=== PATIENT | female | born 1990 | race Hispanic/Latino ===

== ENCOUNTER 2019-09-18 02:46 | Emergency (ER) | payer SELFPAY ==
[2019-09-18 03:34] LABS: APPEARANCE,URINE Clear (CLEAR); BILIRUBIN,URINE Negative (NEGATIVE); COLOR,URINE Yellow (YELLOW); GLUCOSE, URINE (UA) Negative (NEGATIVE); KETONES,URINE 15 mg/dL (NEGATIVE); LEUKOCYTE ESTERASE ,URINE Small (NEGATIVE); NITRATE,URINE Negative (NEGATIVE); OCCULT BLOOD,URINE Large (NEGATIVE); PROTEIN,URINE Negative (NEGATIVE); UROBILINOGEN,URINE 0.2 mg/dL (0.2-1.0)
[2019-09-18 03:42] LABS: AMPHET/METH SCREEN,URINE NEGATIVE (NEGATIVE); BARBITURATE SCREEN, URINE NEGATIVE (NEGATIVE); BENZODIAZEPINES SCREEN,URINE NEGATIVE (NEGATIVE); CANNABINOID SCREEN,URINE NEGATIVE (NEGATIVE); COCAINE SCREEN,URINE NEGATIVE (NEGATIVE); OPIATE SCREEN,URINE NEGATIVE (NEGATIVE); PHENCYCLIDINE SCREEN,URINE NEGATIVE (NEGATIVE)
[2019-09-18 03:48] LABS: BACTERIA,URINE None Seen /HPF (None Seen); WBC,URINE None Seen /HPF (0-1)
[2019-09-18 03:49] LABS: HCG,QUAL RESULT NEGATIVE (NEGATIVE)
[2019-09-18 04:06] LABS: BASOPHILS % (AUTO) 0.4 % (0.0-5.0); EOSINOPHILS % (AUTO) 1.5 % (0.0-8.0); HEMATOCRIT 37.1 % (36-48); LYMPHOCYTES % (AUTO) 21.7 % (21.0-51.0); MEAN CORPUSCULAR HEMOGLOBIN 27.6 pg (27.0-33.0); MEAN CORPUSCULAR HGB CONC 33.7 g/dL (32.0-36.0); MEAN CORPUSCULAR VOLUME 81.9 fL (79-99); MONOCYTES % (AUTO) 5.5 % (3.0-13.0); NEUTROPHILS % (AUTO) 70.7 % (40.0-77.0); PLATELET COUNT (AUTO) 305 K/uL (130-400); RED BLOOD CELL COUNT(AUTO) 4.53 MIL/uL (4.00-5.50); RED CELL DISTRIBUTION WIDTH 13.4 % (11.0-15.5); WHITE BLOOD COUNT (AUTO) 8.1 K/uL (4.8-10.8)
[2019-09-18 04:15] LABS: CREATININE 0.7 mg/dL (0.5-1.5); POTASSIUM 3.1 mmol/L (3.5-5.1)
[2019-09-18 04:20] LABS: ALBUMIN 3.5 g/dL (3.5-5.0); BILIRUBIN,TOTAL 0.3 mg/dL (0.2-1.0); TOTAL PROTEIN, SERUM 7.7 g/dL (6.0-8.3)
[2019-09-18] MEDS ORDERED: POTASSIUM BICARB/CIT AC 25 MEQ TABLET.EFF ONE (04:38)
== END 2019-09-18 05:10 | disposition home or self-care (01) ==
LOC: EDH 02:46
DX: R07.89 Other chest pain (principal); R10.13 Epigastric pain; F41.9 Anxiety disorder, unspecified; R00.2 Palpitations; E87.6 Hypokalemia
CPT/HCPCS: 36415; 71045; 76705; 80053; 80305; 81001; 81025; 82550; 83690; 84484; 85025; 93005

== ENCOUNTER 2021-07-03 17:46 | Emergency (ER) | payer MEDICAID ==
[~2021-07-03] VITALS: Ht 157.5 cm; Wt 113.4 kg
[2021-07-03] MEDS ORDERED: ACETAMINOPHEN 325 MG TAB PO ONE (18:00)
[2021-07-03] MEDS ORDERED: CLIN-141 PO (18:07)
[2021-07-03 18:28] VITALS: BP 128/72
== END 2021-07-03 18:20 | disposition home or self-care (01) ==
LOC: EDH 17:46
DX: K05.6 Periodontal disease, unspecified (principal)
CPT/HCPCS: 99281; 99282

== ENCOUNTER 2021-12-30 18:15 | Emergency (ER) | payer MEDICAID ==
[~2021-12-30] VITALS: Ht 157.5 cm; Wt 107.0 kg
[~2021-12-30 18:15] MED LIST: CLIN-141 PO
[2021-12-30 19:08] LABS: APPEARANCE,URINE Clear (CLEAR); BILIRUBIN,URINE Negative (NEGATIVE); COLOR,URINE Yellow (YELLOW); GLUCOSE, URINE (UA) Negative (NEGATIVE); KETONES,URINE Trace mg/dL (NEGATIVE); LEUKOCYTE ESTERASE ,URINE Small (NEGATIVE); NITRATE,URINE Negative (NEGATIVE); OCCULT BLOOD,URINE Negative (NEGATIVE); PH,URINE 6.5 (5.0-8.0); PROTEIN,URINE Negative (NEGATIVE); UROBILINOGEN,URINE 0.2 mg/dL (0.2-1.0)
[2021-12-30 19:12] LABS: HCG,QUAL RESULT NEGATIVE (NEGATIVE)
[2021-12-30 19:14] LABS: BACTERIA,URINE Few /HPF (None Seen); RBC,URINE 0-1 /HPF (0-1); SQUAMOUS EPITHELIAL CELL,UR Few /HPF (0-2); WBC,URINE 0-1 /HPF (0-1)
[2021-12-30 19:26] VITALS: BP 117/63
[2021-12-30 19:30] LABS: BASOPHILS % (AUTO) 0.5 % (0.0-5.0); EOSINOPHILS % (AUTO) 1.2 % (0.0-8.0); HEMATOCRIT 36.3 % (36-48); LYMPHOCYTES % (AUTO) 28.1 % (21.0-51.0); MEAN CORPUSCULAR HEMOGLOBIN 25.6 pg (27.0-33.0); MONOCYTES % (AUTO) 5.5 % (3.0-13.0); NEUTROPHILS % (AUTO) 64.5 % (40.0-77.0); PLATELET COUNT (AUTO) 315 K/uL (130-400); RED BLOOD CELL COUNT(AUTO) 4.54 MIL/uL (4.00-5.50); RED CELL DISTRIBUTION WIDTH 14.1 % (11.0-15.5); WHITE BLOOD COUNT (AUTO) 8.9 K/uL (4.8-10.8)
[2021-12-30 19:33] LABS: AMPHET/METH SCREEN,URINE NEGATIVE (NEGATIVE); BARBITURATE SCREEN, URINE NEGATIVE (NEGATIVE); BENZODIAZEPINES SCREEN,URINE NEGATIVE (NEGATIVE); CANNABINOID SCREEN,URINE NEGATIVE (NEGATIVE); COCAINE SCREEN,URINE NEGATIVE (NEGATIVE); OPIATE SCREEN,URINE NEGATIVE (NEGATIVE); PHENCYCLIDINE SCREEN,URINE NEGATIVE (NEGATIVE)
[2021-12-30 19:35] LABS: CREATININE 0.7 mg/dL (0.5-1.5); POTASSIUM 3.9 mmol/L (3.5-5.1)
[2021-12-30 19:39] LABS: ALBUMIN 3.4 g/dL (3.5-5.0); BILIRUBIN,TOTAL 0.3 mg/dL (0.2-1.0); TOTAL PROTEIN, SERUM 7.5 g/dL (6.0-8.3)
[2021-12-30] MEDS ORDERED: FLUT1DIS IH (19:46)
[2021-12-30] MEDS ORDERED: ALBU8.5H8 IH (19:46)
== END 2021-12-30 19:59 | disposition home or self-care (01) ==
LOC: EDH 18:15
DX: R06.00 Dyspnea, unspecified (principal); R07.89 Other chest pain; E66.9 Obesity, unspecified; Z68.41 Body mass index [BMI] 40.0-44.9, adult; Z79.899 Other long term (current) drug therapy; Z98.890 Other specified postprocedural states
CPT/HCPCS: 36415; 71045; 80053; 80305; 81001; 81025; 82550; 84484; 85025

== ENCOUNTER 2023-03-18 06:46 | Emergency (ER) | payer MEDICAID, OTHER ==
[~2023-03-18] VITALS: Ht 157.5 cm; Wt 111.6 kg
[~2023-03-18 06:46] MED LIST changes: +ALBU8.5H8 IH; +FLUT1DIS IH
[2023-03-18 07:55] LABS: BASOPHILS # (AUTO) 0.04 K/uL (0.00-0.20); BASOPHILS % (AUTO) 0.6 % (0.0-5.0); EOSINOPHILS # (AUTO) 0.09 K/uL (0.00-0.70); EOSINOPHILS % (AUTO) 1.4 % (0.0-8.0); HEMATOCRIT 32.5 % (36-48); IMMATURE GRANULOCYTE ABSOLUTE 0.02 K/uL (0-1); LYMPHOCYTES # (AUTO) 2.2 K/uL (1.0-4.8); LYMPHOCYTES % (AUTO) 35.1 % (21.0-51.0); MEAN CORPUSCULAR HEMOGLOBIN 23.5 pg (27.0-33.0); MEAN CORPUSCULAR HGB CONC 31.7 g/dL (32.0-36.0); MEAN CORPUSCULAR VOLUME 74.2 fL (79-99); MONOCYTES # (AUTO) 0.5 K/uL (0.1-1.0); MONOCYTES % (AUTO) 8.1 % (3.0-13.0); NEUTROPHILS # (AUTO) 3.4 K/uL (1.8-7.7); NEUTROPHILS % (AUTO) 54.5 % (40.0-77.0); PLATELET COUNT (AUTO) 313 K/uL (130-400); RED BLOOD CELL COUNT(AUTO) 4.38 MIL/uL (4.00-5.50); WHITE BLOOD COUNT (AUTO) 6.3 K/uL (4.8-10.8)
[2023-03-18 07:58] LABS: APPEARANCE,URINE CLEAR (CLEAR); BILIRUBIN,URINE NEGATIVE (NEGATIVE); COLOR,URINE LIGHT-YELLOW (YELLOW); GLUCOSE, URINE (UA) NEGATIVE (NEGATIVE); KETONES,URINE NEGATIVE (NEGATIVE); LEUKOCYTE ESTERASE ,URINE 250 Leu/uL (NEGATIVE); NITRATE,URINE NEGATIVE (NEGATIVE); OCCULT BLOOD,URINE NEGATIVE (NEGATIVE); PROTEIN,URINE NEGATIVE (NEGATIVE); UROBILINOGEN,URINE 0.2 mg/dL (0.2-1.0)
[2023-03-18 08:06] LABS: CREATININE 0.7 mg/dL (0.5-1.5); POTASSIUM 4.1 mmol/L (3.5-5.1)
[2023-03-18 08:10] LABS: ADD UA MICROSCOPIC YES; ALBUMIN 3.1 g/dL (3.5-5.0); BILIRUBIN,TOTAL 0.3 mg/dL (0.2-1.0); TOTAL PROTEIN, SERUM 7.1 g/dL (6.0-8.3)
[2023-03-18 08:12] LABS: BACTERIA,URINE RARE /HPF (None Seen); MUCUS,URINE RARE LPF (None Seen); RBC,URINE 0-1 /HPF (0-1); SQUAMOUS EPITHELIAL CELL,UR RARE /HPF (0-2); WBC,URINE 0-1 /HPF (0-1)
[2023-03-18] MEDS ORDERED: SULF1TAB42 PO (08:20)
[2023-03-18] MEDS ORDERED: PHEN-847 PO (08:20)
[2023-03-18 09:55] VITALS: BP 124/70; PULSE 83; RESP 18; O2SAT 99
== END 2023-03-18 10:14 | disposition home or self-care (01) ==
LOC: EDH 06:46
DX: N30.00 Acute cystitis without hematuria (principal); R10.2 Pelvic and perineal pain; Z79.899 Other long term (current) drug therapy; Z98.890 Other specified postprocedural states
CPT/HCPCS: 36415; 80053; 81001; 84703; 85025; 87088

== ENCOUNTER 2023-09-13 22:31 | Emergency (ER) | payer OTHER ==
[~2023-09-13] VITALS: Ht 157.5 cm; Wt 104.8 kg
[~2023-09-13 22:31] MED LIST changes: +PHEN-847 PO; +SULF1TAB42 PO
[2023-09-13 23:06] LABS: SARS-CoV-2, RNA, NAAT NEGATIVE SARS CoV-2 (NEGATIVE)
[2023-09-13 23:09] LABS: RAPID GROUP A STREP negative (NEGATIVE)
[2023-09-13 23:12] LABS: INFLUENZA TYPE A Negative For Type A (NEGATIVE); INFLUENZA TYPE B Negative For Type B (NEGATIVE)
[2023-09-13 23:26] LABS: APPEARANCE,URINE CLEAR (CLEAR); BILIRUBIN,URINE NEGATIVE (NEGATIVE); COLOR,URINE LIGHT-YELLOW (YELLOW); GLUCOSE, URINE (UA) NEGATIVE (NEGATIVE); KETONES,URINE 5 mg/dL (NEGATIVE); LEUKOCYTE ESTERASE ,URINE 75 Leu/uL (NEGATIVE); NITRATE,URINE NEGATIVE (NEGATIVE); PH,URINE 5.5 (5.0-8.0); PROTEIN,URINE NEGATIVE (NEGATIVE); UROBILINOGEN,URINE 0.2 mg/dL (0.2-1.0)
[2023-09-13 23:30] LABS: ADD UA MICROSCOPIC YES
[2023-09-13] MEDS ORDERED: IBUPROFEN 600 MG TABLET PO ONE (23:30)
[2023-09-13 23:39] LABS: MUCUS,URINE RARE LPF (None Seen); RBC,URINE 0-1 /HPF (0-1); SQUAMOUS EPITHELIAL CELL,UR MOD /HPF (0-2)
[2023-09-13] MEDS ORDERED: SULF1TAB42 PO (23:55)
[2023-09-14 00:20] VITALS: BP 118/74; PULSE 76; RESP 16; O2SAT 99
== END 2023-09-14 00:23 | disposition home or self-care (01) ==
LOC: EDH 22:31
DX: N39.0 Urinary tract infection, site not specified (principal); R59.0 Localized enlarged lymph nodes; Z20.822 Contact with and (suspected) exposure to COVID-19; Z79.899 Other long term (current) drug therapy; Z98.890 Other specified postprocedural states
CPT/HCPCS: 81001; 81025; 87088; 87635; 87804; 87880

== ENCOUNTER 2024-04-17 19:22 | Emergency (ER) | payer SELFPAY ==
[~2024-04-17] VITALS: Ht 157.5 cm; Wt 107.5 kg
[2024-04-17 19:57] LABS: APPEARANCE,URINE CLEAR (CLEAR); BILIRUBIN,URINE NEGATIVE (NEGATIVE); COLOR,URINE COLORLESS (YELLOW); GLUCOSE, URINE (UA) NEGATIVE (NEGATIVE); KETONES,URINE NEGATIVE (NEGATIVE); LEUKOCYTE ESTERASE ,URINE 75 Leu/uL (NEGATIVE); NITRATE,URINE NEGATIVE (NEGATIVE); OCCULT BLOOD,URINE NEGATIVE (NEGATIVE); PROTEIN,URINE NEGATIVE (NEGATIVE); UROBILINOGEN,URINE 0.2 mg/dL (0.2-1.0)
[2024-04-17 20:00] LABS: ADD UA MICROSCOPIC YES
[2024-04-17 20:03] LABS: MUCUS,URINE RARE LPF (None Seen); RBC,URINE 0-1 /HPF (0-1); SQUAMOUS EPITHELIAL CELL,UR RARE /HPF (0-2)
[2024-04-17 20:04] LABS: RAPID GROUP A STREP negative (NEGATIVE)
[2024-04-17 20:11] LABS: SARS-CoV-2, RNA, NAAT NEGATIVE SARS CoV-2 (NEGATIVE)
[2024-04-17 20:14] LABS: INFLUENZA TYPE A Negative For Type A (NEGATIVE); INFLUENZA TYPE B Negative For Type B (NEGATIVE)
[2024-04-17 20:14] LABS: BASOPHILS # (AUTO) 0.04 K/uL (0.00-0.20); BASOPHILS % (AUTO) 0.5 % (0.0-5.0); EOSINOPHILS # (AUTO) 0.07 K/uL (0.00-0.70); EOSINOPHILS % (AUTO) 0.9 % (0.0-8.0); HEMATOCRIT 30.2 % (36-48); IMMATURE GRANULOCYTE ABSOLUTE 0.02 K/uL (0-1); LYMPHOCYTES # (AUTO) 2.2 K/uL (1.0-4.8); LYMPHOCYTES % (AUTO) 28.7 % (21.0-51.0); MEAN CORPUSCULAR HEMOGLOBIN 20.5 pg (27.0-33.0); MEAN CORPUSCULAR HGB CONC 29.8 g/dL (32.0-36.0); MEAN CORPUSCULAR VOLUME 68.8 fL (79-99); MONOCYTES # (AUTO) 0.5 K/uL (0.1-1.0); MONOCYTES % (AUTO) 6.2 % (3.0-13.0); NEUTROPHILS # (AUTO) 4.9 K/uL (1.8-7.7); NEUTROPHILS % (AUTO) 63.4 % (40.0-77.0); PLATELET COUNT (AUTO) 399 K/uL (130-400); RED BLOOD CELL COUNT(AUTO) 4.39 MIL/uL (4.00-5.50); RED CELL DISTRIBUTION WIDTH 17.2 % (11.0-15.5); WHITE BLOOD COUNT (AUTO) 7.8 K/uL (4.8-10.8)
[2024-04-17 20:27] LABS: CREATININE 0.8 mg/dL (0.5-1.0); POTASSIUM 3.4 mmol/L (3.5-5.1)
[2024-04-17 20:31] LABS: ALBUMIN 3.3 g/dL (3.5-5.0); BILIRUBIN,DIRECT 0.1 mg/dL (0.0-0.3); BILIRUBIN,TOTAL 0.2 mg/dL (0.2-1.0); TOTAL PROTEIN, SERUM 7.6 g/dL (6.0-8.3)
[2024-04-17 20:50] VITALS: BP 131/80; PULSE 98; RESP 16; TEMP 98; O2SAT 100
[2024-04-17] MEDS: LIDOCAINE HCL 2% VISCOUS 15 ML UDCUP PO ONE (20:53)
[2024-04-17] MEDS: MAG/ALUM/SIMETH 30 ML UDCUP PO ONE (20:53)
[2024-04-17] MEDS ORDERED: PANT40TA55 PO (21:19)
[2024-04-17] MEDS ORDERED: CEPH500B PO (21:19)
[2024-04-17] MEDS ORDERED: FLUT16H NASAL (21:19)
== END 2024-04-17 21:28 | disposition home or self-care (01) ==
LOC: EDH 19:22
DX: J32.9 Chronic sinusitis, unspecified (principal); N39.0 Urinary tract infection, site not specified; K21.9 Gastro-esophageal reflux disease without esophagitis; Z20.822 Contact with and (suspected) exposure to COVID-19; Z79.899 Other long term (current) drug therapy; Z98.890 Other specified postprocedural states
CPT/HCPCS: 36415; 80048; 80076; 81001; 81025; 84484; 85025; 87086; 87635; 87804; 87880; 93005

== ENCOUNTER 2025-04-02 09:28 | Emergency (ER) | payer SELFPAY ==
[~2025-04-02] VITALS: Ht 157.5 cm; Wt 111.1 kg
[~2025-04-02 09:28] MED LIST changes: +CEPH500B PO; +CEPH500T PO; +FLUT16H NASAL; +PANT40TA55 PO
[2025-04-02 09:31] VITALS: TEMP 97.8
[2025-04-02 10:46] LABS: IMMATURE GRANULOCYTE ABSOLUTE 0.01 K/uL (0-1); NUCLEATED RED BLOOD CELLS 0.0 % (0.0-0.19); PLATELET COUNT (AUTO) 424 K/uL (130-400); RED BLOOD CELL COUNT(AUTO) 4.41 MIL/uL (4.00-5.50); RED CELL DISTRIBUTION WIDTH 19.1 % (11.0-15.5); WHITE BLOOD COUNT (AUTO) 6.8 K/uL (4.8-10.8)
[2025-04-02 10:55] LABS: CREATININE 0.6 mg/dL (0.5-1.0); GLOMERULAR FILTR. RATE CALC 120.0 mL/min (>90); GLUCOSE,RANDOM 111.0 mg/dL (70-105); SODIUM SERUM 137.0 mmol/L (136-145); UREA NITROGEN, BLOOD 18.0 mg/dL (7-18)
[2025-04-02 10:58] LABS: APPEARANCE,URINE TURBID (CLEAR); GLUCOSE, URINE (UA) NEGATIVE (NEGATIVE); LEUKOCYTE ESTERASE ,URINE 75 Leu/uL (NEGATIVE); NITRATE,URINE NEGATIVE (NEGATIVE); OCCULT BLOOD,URINE LARGE (NEGATIVE)
[2025-04-02 10:59] LABS: ADD UA MICROSCOPIC YES
[2025-04-02 11:16] LABS: HCG,QUALITATIVE URINE NEGATIVE (NEGATIVE)
[2025-04-02] MEDS: 0.9%NACL 1000ML 1,000 ML IV ONE (11:17)
[2025-04-02] MEDS: PROCHLORPERAZINE 10MG/2ML INJ IV ONE (11:17)
--- NOTE | 2025-04-02 11:18 | ERN ---
General Chief Complaint: Headache Stated Complaint: HEADACHE Time Seen by MD: 09:33 Source: patient History of Present Illness Initial Comments Patient is a 34-year-old female coming in complaining of a headache. Per patient she has been having this headache for a couple of days. No fever no chills. Along with this patient has been having left jaw swelling. Allergies: Coded Allergies: No Known Allergies (Verified Allergy, 07/24/13) Home Meds Active Scripts Cephalexin (Cephalexin) 500 Mg Tablet, 500 MG PO BID for 7 Days, #14 TAB Prov:KALLI SAVAGE 10/08/24 Pantoprazole Sodium (Protonix) 40 Mg Ectab, 40 MG PO DAILY for 30 Days, #30 TAB.EC Prov:LEON WOODRUFF MD 04/17/24 Fluticasone Propionate (Flonase Nasal [place]) 50 Mcg/Actuation [place], 50 MCG NASAL BID for 7 Days, #60 SPRAY Prov:LEON WOODRUFF MD 04/17/24 Cephalexin Monohydrate (Keflex) 500 Mg Cap, 500 MG PO TID for 7 Days, #21 CAP Prov:LEON WOODRUFF MD 04/17/24 Sulfamethoxazole/Trimethoprim (Bactrim Ds Tablet) 800 Mg-160 Mg Tablet, 1 TAB PO BID for 7 Days, #14 TAB 0 Refills Prov:RAJAN HOLBROOK 09/13/23 Phenazopyridine HCl (Pyridium) 200 Mg Tab, 200 MG PO TIDPC for pain, #9 TAB TAKE WITH FOOD TO PREVENT STOMACH UPSET. Prov:JEFF LARSON MD 03/18/23 Sulfamethoxazole/Trimethoprim (Bactrim Ds Tablet) 1 Each Tablet, 1 TAB PO BID, #10 TAB Prov:JEFF LARSON MD 03/18/23 Fluticasone/Salmeterol (Advair 100-50 Diskus) 1 Each Blst.w.dev, 1 EACH IH BID, #1 DISK Prov:ROYAL KOWALSKI 12/30/21 Albuterol Sulfate (Proair Hfa) 8.5 Gm Hfa.aer.ad, 2 PUFF IH QIDP, #1 INHALER Prov:ROYAL KOWALSKI 12/30/21 Clindamycin HCl (Clindamycin HCl) 300 Mg Capsule, 300 MG PO QID, #30 CAP Prov:LEON WOODRUFF MD 07/03/21 Past Medical History Past Medical History: Anemia Past Surgical History: None Surgical History Other: D&C Family History Family History: Negative Social History Social History: Negative Female( History) LMP: Apr 02, 2025 : 4 Para: 3 Aborts: 1 ROS Dictation CONSTITUTIONAL: No chills, no fever, no weakness, no diaphoresis, no malaise. HEAD/FACE: No signs of trauma. EENT: No eye pain, no blurred vision, no tearing, no double vision, no ear pain, no ear discharge, no nose pain, no nasal congestion, no throat pain, no throat swelling, no mouth pain. RESPIRATORY: No cough, no orthopnea, no SOB, no stridor, no wheezing. CARDIOVASCULAR: No chest pain, no edema, no palpitations, no syncope. GASTROINTESTINAL/ABDOMINAL: No abdominal pain, no constipation, no diarrhea, no nausea, no vomiting. GENITOURINARY: No abnormal discharge, no dysuria, no frequent urination, no hematuria. No complaints of pain in the genitals. MUSCULOSKELETAL: No back pain, no gout, no joint pain, no joint swelling, no muscle pain, no muscle stiffness, no neck pain. INTEGUMENTARY: No change in color, no change in hair/nails, no dryness, no lesion, no lumps, no rash. NEUROLOGICAL/PSYCH: No anxiety, not depressed, no emotional problem, no headache, no numbness, no pre-existing deficit, no history of seizures, no tremors, no weakness. HEMATOLOGIC/LYMPHATIC: Not anemic, no history of blood clots, no apparent bleeding, no bruising, glands not swollen. All Systems Negative, Except as Noted. Physical Exam Physical Exam Dictation VITAL SIGNS: Reviewed. GENERAL APPEARANCE: Alert, oriented x3, no acute distress, obese. HEAD AND FACE: Non-traumatic. Left submental lymph node swelling EYES: PERRL, pink conjunctivas, eyelid no trauma, anterior chamber clear. EARS: Pinnas intact and no signs of trauma or erythema. Ear canals clear and no discharge. TMs no erythema. NOSE: No discharge, no bleeding. OROPHARYNX: Mouth normal, teeth no caries, tongue pink. Pharynx clear, no erythema. Tonsils no exudates, no abscesses noted. Mucous membrane moist. NECK: Supple, non-tender, no thyromegaly, no masses, no JVD, no bruits. BREAST: Deferred. CHEST: No tenderness, no crepitus, no paradoxical movement, no retractions. LUNGS: Clear, well-ventilated, symmetric, no rales, no wheezing, no rhonchi, no stridor, good breath sounds bilaterally. HEART: Regular rate, regular rhythm, no murmur, no gallops. VASCULAR: No peripheral edema. ABDOMEN: Soft, positive bowel sounds, nondistended, no guarding, nontender, no rebound, no masses no hepatomegaly, no splenomegaly, no Rivera's sign, no hernias. RECTAL: Deferred. GENITAL: Deferred. NEUROLOGICAL: Normal speech, gross motor function intact, gross sensory function intact. MUSCULOSKELETAL: Neck nontender, full range of motion, back nontender, full range of motion. EXTREMITIES: Nontender, full range of motion. Bilateral trapezius muscle tenderness on palpation SKIN: Color pink, dry, no turgor, no rash, no lacerations, no abrasions, no contusions. LYMPHATICS: Deferred. Results Laboratory and Microbiology Lab and Micro Result Laboratory Tests Test 04/02/25 10:39 04/02/25 10:44 04/02/25 12:15 White Blood Count 6.8 K/uL (4.8-10.8) Red Blood Count 4.41 MIL/uL (4.00-5.50) Hemoglobin 8.1 g/dL (12.0-16.0) L Hematocrit 28.5 % (36-48) L Mean Corpuscular Volume 64.6 fL (79-99) L Mean Corpuscular Hemoglobin 18.4 pg (27.0-33.0) L Mean Corpuscular Hemoglobin Concent 28.4 g/dL (32.0-36.0) L Red Cell Distribution Width 19.1 % (11.0-15.5) H Platelet Count 424 K/uL (130-400) H Mean Platelet Volume 8.7 fL (7.5-10.5) Immature Granulocyte % (Auto) 0.1 % (0-1) Neutrophils (%) (Auto) 51.5 % (40.0-77.0) Lymphocytes (%) (Auto) 40.9 % (21.0-51.0) Monocytes (%) (Auto) 5.3 % (3.0-13.0) Eosinophils (%) (Auto) 1.5 % (0.0-8.0) Basophils (%) (Auto) 0.7 % (0.0-5.0) Neutrophils # (Auto) 3.5 K/uL (1.8-7.7) Lymphocytes # (Auto) 2.8 K/uL (1.0-4.8) Monocytes # (Auto) 0.4 K/uL (0.1-1.0) Eosinophils # (Auto) 0.10 K/uL (0.00-0.70) Basophils # (Auto) 0.05 K/uL (0.00-0.20) Absolute Immature Granulocyte (auto 0.01 K/uL (0-1) Nucleated Red Blood Cells 0.0 % (0.0-0.19) Red Blood Cell Morphology See comments Sodium Level 137 mmol/L (136-145) Potassium Level 3.5 mmol/L (3.5-5.1) Chloride Level 103 mmol/L (101-111) Carbon Dioxide Level 26 mmol/L (21-32) Blood Urea Nitrogen 18 mg/dL (7-18) Creatinine 0.6 mg/dL (0.5-1.0) Glomerular Filtration Rate Calc 120 mL/min (>90) Random Glucose 111 mg/dL (70-105) H Total Calcium 9.0 mg/dL (8.5-10.1) Urine Color [place] (YELLOW) Urine Appearance TURBID (CLEAR) Urine pH 5.5 (5.0-8.0) Urine Specific [place] 1.028 (1.001-1.031) Urine Protein 70 mg/dL (NEGATIVE) H Urine Glucose (UA) NEGATIVE mg/dL (NEGATIVE) Urine Ketones NEGATIVE mg/dL (NEGATIVE) Urine Occult Blood LARGE (NEGATIVE) H Urine Nitrate NEGATIVE (NEGATIVE) Urine Bilirubin NEGATIVE mg/dL (NEGATIVE) Urine Urobilinogen 0.2 mg/dL (0.2-1.0) Urine Leukocyte Esterase 75 Idck/uL (NEGATIVE) H Urine RBC TNTC /HPF (0-1) H Urine WBC TNTC /HPF (0-1) H Urine Bacteria Few /HPF (None Seen) Urine HCG, Qualitative NEGATIVE (NEGATIVE) SARS-CoV-2, RNA, NAAT NEGATIVE SARS CoV-2 Group A Streptococcus Rapid negative (NEGATIVE) Labs Reviewed?: Yes MDM MDM: Differential diagnosis: Tension headaches, lymphadenopathy, URI, sinusitis, Rationale: Tests considered and ordered secondary to shared decision making include: Previous outside records reviewed: Old ER visits. Risk of complication and/or morbidity or mortality of patient management: None Medications-Per medication reconciliation Need for hospitalization: Patient does not meet criteria for hospitalization. Need for emergency major/minor surgery: No Patient is a 34-year-old female coming in complaining of a headache. Left submental lymph node swelling. Laboratory workup positive for urinary tract infection. Patient received migraine cocktail states he feels better we will be discharged in stable condition with a diagnosis of UTI with lymphadenopathy. ED Course Orders Procedure Category Date Status Time Cbc With Differential LAB 04/02/25 Complete 10:31 ,Urine Test LAB 04/02/25 Complete 10: Urinalysis Profile LAB 04/02/25 Complete 10:31 0.9%Nacl 1000ml (Ns PHA 04/02/25 Complete 1000ml) 11:00 Basic Metabolic Panel LAB 04/02/25 Complete 10:31 Diphenhydramine Hcl PHA 04/02/25 Complete (Benadryl Inj) 11:00 Prochlorperazine PHA 04/02/25 Complete 10mg/2ml Inj 11:00 Culture Urine MARÍA 04/02/25 In Process 11:01 Rapid (Group A Strep) LAB 04/02/25 Complete 11:50 Covid Rna Naat LAB 04/02/25 Complete 11:50 Current Medications Medications (Trade) Dose Ordered Sig/Jeffrey Route PRN Reason Start Time Stop Time Status Last Admin Dose Admin Diphenhydramine HCl (BENAdryl INJ) 25 mg ONCE ONCE IV 04/02/25 11:00 04/02/25 11:01 DC 04/02/25 11:17 Prochlorperazine Edisylate (Compazine 10mg/ 2ml Inj) 10 mg ONCE ONCE IV 04/02/25 11:00 04/02/25 11:01 DC 04/02/25 11:17 Sodium Chloride 1,000 ml @ 0 mls/hr ONCE ONCE IV 04/02/25 11:00 04/02/25 11:01 DC 04/02/25 11:17 Vital Signs Date Time Temp Pulse Resp B/P (MAP) Pulse Ox O2 Delivery O2 Flow Rate FiO2 04/02/25 12:20 69 20 140/66 98 Room Air* 0 21 04/02/25 09:31 97.9 81 15 122/69 97 Room Air 0 DX & DISP Disposition: Discharge Departure Impression: Primary Impression: Acute cystitis Additional Impressions: Lymphadenopathy, cervical, Tension headache Condition: Stable Scripts Diclofenac Sodium (Voltaren Arthritis Pain) 1 % Gel..gram. 5 GM TP BID for 7 Days, #1 TUBE Prov: LEON WOODRUFF MD 04/02/25 Cephalexin Monohydrate (Keflex) 500 Mg Cap 1 CAP PO BID for 10 Days, #20 CAP 0 Refills Prov: LEON WOODRUFF MD 04/02/25 Additional Instructions: FOLLOW-UP WITH PRIMARY CARE PROVIDER IN 1 TO 2 DAYS. TAKE MEDICATIONS DIRECT ED HERE IN THE EMERGENCY ROOM. OKAY TO CONTINUE HOME MEDICATIONS UNLESS OTHERWISE DISCUSSED DURING YOUR VISIT IN THE EMERGENCY ROOM TODAY. RETURN TO YOUR NEAREST EMERGENCY ROOM IF SYMPTOMS WORSEN OR IF THERE IS NO IMPROVEMENT. CALL 911 IF YOU NEED IMMEDIATE ASSISTANCE. TAKE TYLENOL [id number] NEEDED AND IF NO CONTRAINDICATIONS ARE PRESENT. INCREASE ORAL HYDRATION. A WOUND CULTURE OR URINE CULTURE WAS ORDERED HERE IN THE EMERGENCY ROOM DEPARTMENT PLEASE FOLLOW-UP WITH PRIMARY CARE PROVIDER AND ADVISE THEM TO GET REPORTS FROM OUR FACILITY. IF YOU HAD ANY GALILEA WRAP/SPLINTS THAT WERE APPLIED HERE, PLEASE DO NOT REMOVE THEM UNTIL YOU SEE YOUR PRIMARY CARE OR SPECIALTY. Referrals: Referrals: SELF,REFERRAL (PCP) SUSAN SAPP MD Time of Disposition: 12:54 LEON WOODRUFF MD Apr 02, 2025 11:17
[2025-04-02 12:20] VITALS: BP 140/66; PULSE 69; RESP 20; O2SAT 98
[2025-04-02 12:32] LABS: RAPID GROUP A STREP negative (NEGATIVE)
[2025-04-02 12:38] LABS: SARS-CoV-2, RNA, NAAT NEGATIVE SARS CoV-2 (NEGATIVE)
[2025-04-02] MEDS ORDERED: CEPH500B PO (12:55)
[2025-04-02] MEDS ORDERED: DICL20GE TP (12:55)
== END 2025-04-02 13:07 | disposition home or self-care (01) ==
LOC: EDH 09:28
DX: N30.00 Acute cystitis without hematuria (principal); R59.1 Generalized enlarged lymph nodes; G44.209 Tension-type headache, unspecified, not intractable; Z79.51 Long term (current) use of inhaled steroids; Z79.899 Other long term (current) drug therapy; Z20.822 Contact with and (suspected) exposure to COVID-19
CPT/HCPCS: 99284; 96374; 87635; 96361; 96375; 80048; 85025; 87086; 87880; 81001; 81025; 36415; J1200; J7030; J0780